=== PATIENT | female | born 1945 | race Caucasian/White ===

== ENCOUNTER → 2016-03-25 | Outpatient (CLI) | payer OTHER, MEDICARE ==
--- NOTE | 2016-03-25 09:53 | DX ---
Cervical Spine, Two Views History: Cervical fusion. M43.22. Findings: Anterior cervical fusion plate and screws with interbody disk fusion plugs noted at C4, C5, and C6. Hardware appears intact. C6-C7 moderate degenerative disk disease with ventral osteophytes a nd small dorsal osteophytes. C7-T1 grade 1 anterolisthesis with mild degenerative disk disease and 3 mm anterolisthesis. Suggestion of multilevel bilateral facet arthropathy from C3-C4 through C7-T1, wo rse on the right. Impression: 1. C4-C6 anterior cervical diskectomy and fusion hardware appears intact with satisfactory alignment. 2. C6-C7 moderate degenerative disk disease. 3. C7-T1 degenerative grade 1 anterolisthesis with mild degenerative disk disease and moderate bilate ral facet arthropathy.
== END ==
LOC: FIMAGING 08:36
PROVIDERS: ATTEND Physician Assistant Surgical
DX: Z98.1 Arthrodesis status (principal); M50.30 Other cervical disc degeneration, unspecified cervical region; M43.13 Spondylolisthesis, cervicothoracic region

== ENCOUNTER → 2016-05-21 | Outpatient (CLI) | payer OTHER, MEDICARE | LOC: BMCIMAGING 12:57 | PROVIDERS: ATTEND Internal Medicine | DX: M17.11 Unilateral primary osteoarthritis, right knee (principal); M25.461 Effusion, right knee ==

== ENCOUNTER → 2016-06-25 | Outpatient (CLI) | payer OTHER, MEDICARE | LOC: FIMAGING 10:58 | PROVIDERS: ATTEND Physician Assistant Surgical | DX: Z47.89 Encounter for other orthopedic aftercare (principal); Z98.1 Arthrodesis status ==

== ENCOUNTER → 2016-11-25 | Outpatient (CLI) | payer OTHER, MEDICARE | LOC: FIMAGING 11:30 | PROVIDERS: ATTEND Physician Assistant Surgical | DX: Z09 Encounter for follow-up examination after completed treatment for conditions other than malignant neoplasm (principal); Z98.1 Arthrodesis status; M43.13 Spondylolisthesis, cervicothoracic region ==

== ENCOUNTER → 2016-12-02 | Outpatient (CLI) | payer OTHER, MEDICARE | LOC: BMCIMAGING 15:17 | PROVIDERS: ATTEND Nurse Practitioner Adult Health | DX: R00.1 Bradycardia, unspecified (principal); R06.02 Shortness of breath ==

== ENCOUNTER 2017-01-18 10:30 | Inpatient (IN) | payer OTHER, MEDICARE ==
--- NOTE | 2017-05-09 08:55 | GHP ---
[f rep st] PREOP HISTORY AND PHYSICAL DATE OF ADMISSION: 05/10/2017 HISTORY: The patient is a 71-year-old female who presents with severe left shoulder glenohumeral ost eoarthritis. She has had increasing pain, limitation of motion, this impacts functional use of her a rm and activities of daily living. Her x-rays show [id number] osteoarthritis of the right shoulder , an MRI shows some partial rotator cuff involvement, but she is a good candidate for a total shoulde r arthroplasty and wishes to proceed. PAST MEDICAL HISTORY: Remarkable for hypertension, she has had episodes of bradycardia that have bee n worked up by Cardiology and she is cleared for surgery. MEDICATIONS: Metoprolol 25 mg p.o. daily, atorvastatin 20 mg p.o. daily, Dorzolamide, hydrochlorothi azide 25 mg p.o. daily, paroxetine 10 mg p.o. daily, and aspirin 81 mg p.o. daily. PAST SURGICAL HISTORY: Include a left total knee arthroplasty. She has had a C-spine procedure. Jaspreet hernandez has had bilateral thumb CMC operations, and breast biopsies x2. 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 SOCIAL HISTORY: She is a nonsmoker. ALLERGIES: She has an allergy to tape adhesive, as well as sulfa. REVIEW OF SYSTEMS: Review of systems is positive from the standpoint of hypertension, as well as his tory of bradycardia. PHYSICAL EXAM: GENERAL: The patient is a well-developed, well-nourished female, no apparent distres s. HEAD AND NECK: Normocephalic, atraumatic. CHEST: Clear. CARDIOVASCULAR: Regular rate and rhy thm. ABDOMEN: Soft. NEUROLOGIC: She is alert and oriented x3. EXTREMITIES: Examination of the right shoulder shows act ramiro motion to about 120 degrees, abduction to 90 degrees, external rotation to about 50, she can reac h behind her back to the belt line. Rotator cuff strength is good. NEUROVASCULAR: Intact. SKIN: Intact. X-ray show significant glenohumeral arthritis, decreased joint space, degenerative lipping, and defor mity of the humeral head and flattening, all consistent with glenohumeral osteoarthritis. IMPRESSION: Right shoulder osteoarthritis. PLAN: Right total shoulder arthroplasty. Benefits and risks of surgery have been reviewed with the patient, and she understands that the risks include infection, damage to blood vessel or nerve, failu re or loosening of components, need for revision, or possible limitation of motion, and we have discussed the rigorous nature of the rehabilitation. She has signed a consent form, wishes to proceed. /[id number]/MODL
[2017-05-10] MEDS ORDERED: NS IV ONE (06:00)
[2017-05-10] MEDS ORDERED: TRANEXAMIC ACID IV ONE (06:00)
[2017-05-10] MEDS ORDERED: ROPIVACAINE 0.2% 80 MG, EPINEPHrine 0.2 MG, KETOROLAC TROMETHAMINE 30 MG in SYRINGE 0 ML IU ONE (06:00)
[2017-05-10] MEDS ORDERED: ceFAZolin 2 GM/SWFI 2 GM/20 ML SYR IVP ONE (08:46)
[2017-05-10] MEDS ORDERED: ACETAMINOPHEN 500 MG TAB PO ONE (08:46)
[2017-05-10] MEDS ORDERED: LR 1,000 ML IV SCH ×2 (08:46→13:00)
[2017-05-10] MEDS ORDERED: LR 1,000 ML IV ONE (08:48)
[2017-05-10] MEDS ORDERED: LIDOCAINE 1% 2 ML INJ ONE (08:50)
[2017-05-10] MEDS ORDERED: POLYMYXIN B SULFATE 500,000 UNIT/10 ML SYR IRR ONE (08:59)
[2017-05-10] MEDS ORDERED: BACITRACIN 50,000 UNITS/10 ML SYR IRR ONE (08:59)
[2017-05-10] MEDS ORDERED: BUPIVACAINE/EPI 0.5% 30 ML SDV ONE (08:59)
[2017-05-10] MEDS ORDERED: MIDAZOLAM 2 MG/2 ML VIAL ONE (09:07)
[2017-05-10] MEDS ORDERED: fentaNYL 100 MCG/2 ML INJ ONE (09:07)
[2017-05-10] MEDS ORDERED: ROPIVACAINE HCL 150 MG/30 ML INJ ONE (09:07)
[2017-05-10] MEDS ORDERED: LIDOCAINE 1% 2 ML INJ ID PRN (09:11)
--- NOTE | 2017-05-10 09:44 | PDANEPAE ---
ANE History of Present Illness right shoulder pain ANE Past Medical History - Cardiovascular History Hx Hypertension: Yes Hx Arrhythmias: Yes Hx Chest Pain: No Hx Coronary Artery / Peripheral Vascular Disease: Yes Hx CHF / Valvular Disease: No Cardiovascular History Comment: PVCs. HYPERLIPIDEMIA - Pulmonary History Hx COPD: No Hx Asthma/Reactive Airway Disease: No Hx Recent Upper Respiratory Infection: No Hx Oxygen in Use at Home: No Hx Sleep Apnea: No Sleep Apnea Screening Result - Last Documented: Positive Pulmonary History Comment: SOB - Neurologic History Hx Cerebrovascular Accident: No Hx Seizures: No Hx Dementia: No - Endocrine History Hx Diabetes: No - Renal History Hx Renal Disorders: No Renal History Comment: OCCAS INCONTINENCE - Liver History Hx Hepatic Disorders: No - Neurological & Psychiatric Hx Hx Neurological and Psychiatric Disorders: Yes Neurological / Psychiatric History Comment: ANXIETY - Cancer History Hx Cancer: No - Congenital Disorder History Hx Congenital Disorders: No - GI History Hx Gastrointestinal Disorders: No - Other Health History Other Health History: NEG - Chronic Pain History Chronic Pain: Yes (BACK AND NECK PAIN) - Surgical History Prior Surgeries: CERVICAL DISCECTOMY/FUSION 2016. BREAST BX R X2. ASPEN THUMBS SURG. L TKA. CATARACT SURGERY W/STENTS FOR GLAUCOMA ANE Review of Systems Review of Systems: - Exercise capacity METS (RN): 3 METS ANE Patient History - Allergies Allergies/Adverse Reactions: Sulfa (Sulfonamide Antibiotics) Allergy (Severe, Verified 03/16/17 07:54) Rash adhesive tape Allergy (Mild, Verified 12/19/15 11:47) Rash - Home Medications Home Medications: RX: PARoxetine HCL [Paxil 10mg (*)] 10 mg PO DAILY 12/19/15 [Last Taken 05/10/17 ] Metoprolol Succinate Xr [Toprol Xl 25 mg (*)] 25 mg PO HS 03/09/17 [Last Taken 05/09/17] Aspirin [Aspirin 81mg (*)] 81 mg PO DAILY 03/16/17 [Last Taken 05/03/17] Dorzolamide 2% [Trusopt 2% (*)] 1 drops EACHEYE BID 03/16/17 [Last Taken ] Hydrochlorothiazide [HCTZ (*)] 25 mg PO DAILY 03/16/17 [Last Taken 05/09/17] Atorvastatin Calcium [Lipitor 20 mg (*)] 20 mg PO DAILY 05/06/17 [Last Taken 02/ 18/18] - NPO status NPO Since - Liquids (Date): 05/10/17 NPO Since - Liquids (Time): 06:30 NPO Since - Solids (Date): 05/09/17 NPO Since - Solids (Time): 20:00 - Smoking Hx Smoking Status: Former smoker ANE Labs/Vital Signs - Vital Signs Blood Pressure: 125/76 Heart Rate: 34 Respiratory Rate: 116 O2 Sat (%): 93 Height: 165.1 cm Weight: 69.853 kg ANE Physical Exam - Airway Neck exam: decreased ROM Mallampati Score: Class 3 Mouth exam: normal dental/mouth exam - Pulmonary Pulmonary: no respiratory distress - Cardiovascular Cardiovascular: regular rate and rhythym - ASA Status ASA Status: III ANE Anesthesia Plan Anesthesia Plan: general endotracheal anesthesia Regional Anesthesia: interscalene BP NB
--- NOTE | 2017-05-10 09:48 | PDHPUP ---
History & Physical Update H&P update statement: This history and physical update is based on an assessment of the patient which was completed after admission or registration (within 24 hours), but prior to the surgery/procedure.
[2017-05-10] MEDS ORDERED: PROPOFOL 200 MG/20 ML VIAL ONE (09:49)
[2017-05-10] MEDS ORDERED: NALOXONE HCL 0.4 MG/ML INJ IVP PRN (11:51)
[2017-05-10] MEDS ORDERED: PROMETHAZINE HCL 25 MG/ML INJ IVP PRN (11:51)
[2017-05-10] MEDS ORDERED: ONDANSETRON 4 MG/2 ML VIAL IVP PRN ×2 (11:51→12:52)
[2017-05-10] MEDS ORDERED: HYDROmorphONE/DILAUDID 1 MG/ML INJ IVP PRN (11:51)
[2017-05-10] MEDS ORDERED: fentaNYL 100 MCG/2 ML INJ IVP PRN (11:51)
[2017-05-10] MEDS ORDERED: ONDANSETRON 4 MG/2 ML VIAL ONE (12:09)
[2017-05-10] MEDS ORDERED: ROCURONIUM 50 MG/5 ML VIAL ONE (12:10)
[2017-05-10] MEDS ORDERED: DEXAMETHASONE 4 MG/ML VIAL ONE (12:10)
[2017-05-10] MEDS ORDERED: ACETAMINOPHEN 325 MG TAB PO PRN (12:52)
[2017-05-10] MEDS ORDERED: TEMAZEPAM 15 MG CAP PO PRN (12:52)
[2017-05-10] MEDS ORDERED: OXYCODONE/APAP 5/325 TAB PO PRN (12:52)
[2017-05-10] MEDS ORDERED: HYDROCODONE/APAP 5/325 TAB PO PRN (12:52)
--- NOTE | 2017-05-10 12:52 | POSTANESTH ---
Post Anesthetic Evaluation Cardiovascular Status: Normal, Stable Respiratory Status: Normal, Stable Level of Consciousness/Mental Status: Can Participate in Eval Pain Control: Adequate, Prn Tx Ordered Nausea/Vomiting Control: Adequate, Prn Tx Ordered Complications Possibly Related to Anesthesia: None Noted
[2017-05-10 13:36] VITALS: RESP 16
--- NOTE | 2017-05-10 13:46 | GOP ---
[f rep st] OPERATIVE REPORT DATE OF OPERATION: 05/10/2017 SURGEON: Anastacio Dover MD DISCOTHEQUE DANCER: Darren Harris [facility] ANESTHESIOLOGIST: Dr. Sung. PREOPERATIVE DIAGNOSIS: Right shoulder osteoarthritis. POSTOPERATIVE DIAGNOSIS: Right shoulder osteoarthritis. PROCEDURE PERFORMED: A right total shoulder arthroplasty. FINDINGS: SPECIMENS: The excised humeral head. ESTIMATED BLOOD LOSS: About 30 cc. INDICATIONS: The patient is a 71-year-old female who presents with a history, exam, and x-rays consi stent with severe [id number] right shoulder osteoarthritis. DESCRIPTION OF PROCEDURE: The patient was taken to the operating room, and placed supine on the oper ating table and a scalene block was administered by Dr. Sung under ultrasound guidance. She was th en placed under general anesthetic with endotracheal intubation. She received 2 g of IV Ancef as wel l as a dose of tranexamic acid. She was placed in a semi beach-chair position using a Lord head waiter and I moved her body toward the right side of the table so that I could extend the right shoul willy. The right shoulder and arm were prepped and draped free with chlorhexidine. I made a standard anterior exposure of the shoulder starting my incision over the coracoid and extending in the deltope ctoral interval to the anterior upper arm. Dissection was carried down through subcutaneous tissue a nd I mobilized this layer to identify the pectoralis major muscle in the deltoid. I found the deltop ectoral interval and blunt dissection was carried down through the tissues to the conjoined tendon, a retractor was placed beneath the conjoined tendon, another retractor beneath the deltoid. I tenodes ed the biceps just proximal to the pectoralis tendinous insertion, I made a short incision, I sutured the tendon to the surrounding tissues with 2 figure-eight sutures of #2 FiberWire, then released the tendon. Later, I did release the tendon in the joint to remove the proximal biceps tendon which did have tendinosis. I opened the shoulder anteriorly with a vertical incision through the subscapulari s tendon and capsule just about a centimeter to a centimeter and a half medial to the lesser tuberosi ty. I carried this incision into the rotator interval and then with external rotation into the infer ior capsule. This allowed me to bring the head into the wound and I used a neck cutting guide to glenn mei humeral neck cut in about 20-25 degrees of retroversion. I removed osteophytes. By palpating th e axillary nerve and holding it inferiorly and out of the way, I released the inferior capsule. This allowed me to bring the humerus more up into the wound. I gained access to the canal with a sharp a wl and I reamed up to 10 mm. The broaches were used up to 10 mm and this was a good fit. It had the appropriate amount of retroversion as measured by alignment pins. I then exposed the glenoid, remov ed torn labral tissue. I did mobilize the subscapularis muscle and tendon to make this a free moving unit by using a Langenbeck elevator beneath the tendon and the humeral neck and I mobilized the subs tance of the subscapularis, so that it had good excursion. This was tagged. I placed posterior and anterior glenoid neck retractors. I sized the glenoid to a size 40 component. I drilled appropriate peg holes. I used glue in 3 of the 4 peg holes leaving the bone ingrowth peg open for bone ingrowth and I used a 40 anchor peg glenoid Premieron X-linked Polyethylene component. This was a good fit, it fit nicely on the glenoid and was stable. I then redirected my attention to the humerus. I drill ed 4 holes in the anterior humeral neck for repair of the subscapularis and I threaded #2 FiberWire t hrough them. I placed the standard [employer] Porocoat press-fit standard stem, 10 mm diameter in appropriate retroversion. I did trial reductions. I found that a 44 head, 21 mm in thickness, p rovided excellent coverage of the humeral neck and appropriate stability of the joint with about 50% translation when the reduced shoulder was moved anteriorly and posteriorly. It allowed excellent rot ation. I could easily place my subscapularis on the lesser tuberosity for the tissue repair. The 44 x 21 [employer]age humeral head, round in shape, was placed over the Pickett taper fit, hammered in to place, and the joint reduced. I used copious antibiotic irrigation. I mattressed the preplaced F iberWire sutures in the anterior humeral neck through the subscapularis tendon, tied these with multi ple knots, and also added a couple figure-eight sutures of #2 FiberWire in the interval. This provid ed external rotation to about 25-30 degrees. Good internal rotation. The shoulder was mobile and st able. Antibiotic irrigation was used again. I closed this wound in layers using 2-0 Monocryl in the muscle layer, I infiltrated a joint cocktail. I used 3-0 Monocryl in the subcutaneous layer and a 3 -0 Quill suture in the subcuticular layer, and I used glue, Telfa, and a Tegaderm to finish the dress ing. The patient was placed in a sling. There were no complications. DRAINS: None. COUNTS: All were correct. The patient was taken in stable condition to recovery. She received a second dose of tranexamic acid before wound closure. My surgical garment assembler was a medical necessity for this total shoulder replacement. SUMMARY OF COMPONENTS: This is a [employer] shoulder. The glenoid is an Kotlik peg glenoid Premie arnulfo X-linked Polyethylene. The stem is a Porocoat standard stem size 10 mm. The head is a 44 x 21 m m round [employer]age humeral head. /[id number]/MODL
[2017-05-10] MEDS ORDERED: ceFAZolin 2 GM/DEXTROSE 100 ML IV SCH (14:00)
--- NOTE | 2017-05-10 16:10 | ASMTCMCOM ---
CM Note CM Note Notes: Patient admitted for shoulder arthroplasty, Therapies pending. Needs to be determined. CM to follow. Date Signed: 05/10/2017 04:09 PM Electronically Signed By:Chela Kelly RN
[2017-05-10] MEDS: KETOROLAC 15 MG/1 ML SDV IVP SCH (18:16)
[2017-05-10] MEDS: ceFAZolin 2 GM/SWFI 2 GM/20 ML SYR IVP SCH (18:17)
[2017-05-10] MEDS: DOCUSATE SODIUM 100 MG CAP PO SCH (20:47)
[2017-05-10] MEDS ORDERED: METOPROLOL SUCCINATE XR 25 MG TAB PO SCH (21:00)
[2017-05-10] MEDS: DORZOLAMIDE 2% OPTH DROPS EACHEYE SCH (21:19)
[2017-05-11] MEDS: KETOROLAC 15 MG/1 ML SDV IVP SCH ×3 (00:42→12:29)
[2017-05-11] MEDS: ceFAZolin 2 GM/SWFI 2 GM/20 ML SYR IVP SCH (01:03)
--- NOTE | 2017-05-11 07:54 | SOAPPROG ---
SOAP Progress Note Assessment/Plan: Assessment: 05/11/17 POD#1 R TSA, pain controlled Plan: 05/11/17 07:52 PT/OT and home today, has PT set up, oxy, celebrex Objective: Vital Signs Temp Pulse Resp BP Pulse Ox 36.5 C 59 L 16 107/54 L 98 05/11/17 03:27 05/11/17 03:27 05/11/17 03:27 05/11/17 03:27 05/11/17 03:27 05/10/17 05/11/17 05/12/17 05:59 05:59 05:59 Intake Total 2836 Output Total 700 Balance 2136 ICD10 Worksheet Patient Problems: Problems Problem Status Onset Cervical vertebral fusion Acute
[2017-05-11 08:15] VITALS: BP 117/57; TEMP 98.2
[2017-05-11] MEDS: DOCUSATE SODIUM 100 MG CAP PO SCH (08:23)
[2017-05-11] MEDS: DORZOLAMIDE 2% OPTH DROPS EACHEYE SCH (08:23)
[2017-05-11] MEDS ORDERED: ATORVASTATIN CALCIUM 20 MG TAB PO SCH (09:00)
[2017-05-11] MEDS ORDERED: HYDROCHLOROTHIAZIDE 25 MG TAB PO SCH (09:00)
[2017-05-11] MEDS ORDERED: PARoxetine HCL 10 MG TAB PO SCH (09:00)
[2017-05-11] MEDS ORDERED: ASPIRIN 81 MG CHEWABLE TAB PO SCH (09:00)
[2017-05-11 12:48] VITALS: PULSE 40; O2SAT 92
--- NOTE | 2017-05-11 14:03 | ASMTCMCOM ---
CM Note CM Note Notes: Kinsey at Dr. Dover's office reports they have set up [facility] for pt and have already sent them orders. Date Signed: 05/11/2017 02:02 PM Electronically Signed By:AZALIA Warner
--- NOTE | 2017-05-11 14:04 | ASDISCHSUM ---
Discharge Information Plan Status:Home with Home Health Medically Cleared to Leave: Discharge Date:05/11/2017 01:05 PM CM D/C Disposition:Home Health Service ADT D/C Disposition:[id number] Projected Discharge Date:05/11/2017 11:00 AM Transportation at D/C: Discharge Delay Reason: Follow-Up Date:05/11/2017 11:00 AM Discharge Slot: Final Diagnosis: Placement Information Referral Type:*Home Health Care Services Referral ID:[id number] Provider Name:[facility] Address 1:[address] Address 2: City:[place] Selection Factors: State:[place] Patient Contact Information Contact Name:BENOIT Relationship: Address:[address] City:[facility] [facility] Phone: [facility]/Zip Code:[place] [address] Email: Financial Information Financial Class:Medicare Primary Plan Desc:MEDICARE INPATIENT Primary Plan Number:[id number] Secondary Plan Desc:AARP/MDR SUPPLEMENT Secondary Plan Number:[id number] Assessment Information [facility] CM Progress Note CM Note CM Note Notes: Patient admitted for shoulder arthroplasty, Therapies pending. Needs to be determined. CM to follow. Date Signed: 05/10/2017 04:09 PM Electronically Signed By:Chela Kelly RN [facility] CM Progress Note CM Note CM Note Notes: Kinsey at Dr. Dover's office reports they have set up [facility] for pt and have already sent them orders. Date Signed: 05/11/2017 02:02 PM Electronically Signed By:AZALIA Warner Intervention Information
== END 2017-05-11 13:05 | disposition home health service (06) | DRG 483 ==
LOC: F3N 05-10 08:07
PROVIDERS: ADMIT Orthopaedic Surgery; ATTEND Orthopaedic Surgery
PROC: 0RRK0JZ Replacement of Left Shoulder Joint with Synthetic Substitute, Open Approach (ICD-10-PCS; principal; 2017-05-10 10:45)
DX: M19.012 Primary osteoarthritis, left shoulder (principal); I10 Essential (primary) hypertension; Z96.652 Presence of left artificial knee joint
CPT/HCPCS: 97161-GP; 97165-GO; 97535-GO; C1713; G8978-GP-CI; G8979-GP-CI; G8980-GP-CI; G8987-GO-CI; G8988-GO-CI; G8989-GO-CI; J0171; J0690; J1100; J1885; J2250; J2405; J2704; J2795; J3010

== ENCOUNTER 2017-03-16 06:34 | Day surgery (SDC) | payer OTHER, MEDICARE ==
[2017-03-16] MEDS ORDERED: FAMOTIDINE 20 MG TAB PO ONE (06:35)
[2017-03-16] MEDS ORDERED: diphenhydrAMINE 25 MG CAP PO ONE ×2 (06:35→07:04)
[2017-03-16] MEDS ORDERED: ASPIRIN EC 325 MG TAB PO ONE ×2 (06:35→07:04)
[2017-03-16] MEDS ORDERED: NS 1,000 ML IV ONE (06:35)
[2017-03-16] MEDS ORDERED: DIAZEPAM 5 MG TAB PO ONE (06:35)
--- NOTE | 2017-03-16 07:00 | CPEKG ---
Heart Rate: 82 RR Interval: 732 P-R Interval: 200 QRSD Interval: 94 QT Interval: 392 QTC Interval: 458 P Spencer: 72 QRS Spencer: -17 T Wave Spencer: -8 EKG Severity - ABNORMAL ECG - EKG Impression: SINUS RHYTHM EKG Impression: VENTRICULAR BIGEMINY EKG Impression: PROBABLE LEFT ATRIAL ABNORMALITY EKG Impression: BORDERLINE LEFT AXIS DEVIATION Electronically Signed By: Jose Zaragoza 16-Mar-2017 07:50:55
[2017-03-16] MEDS ORDERED: FAMOTIDINE 20 MG TAB ONE (07:04)
[2017-03-16] MEDS ORDERED: DIAZEPAM 5 MG TAB ONE (07:04)
[2017-03-16 07:15] LABS: % IMMATURE GRANULYOCYTES 0.1 % (0.0-1.1); ABSOLUTE IMMATURE GRANULOCYTES 0.01 10^3/uL (0.00-0.10); ADD DIFF? NO; ADD MORPH? NO; ADD SCAN? NO; ATYPICAL LYMPHOCYTE FLAG 10 (0-99); FRAGMENT RBC FLAG 0 (0-99); HEMOGLOBIN 14.7 g/dL (12.6-16.3); LEFT SHIFT FLG 0 (0-99); LIPEMIA HEMOLYSIS FLAG 90 (0-99); MEAN CELL HEMOGLOBIN 31.2 pg (27.9-34.1); MEAN CELL HEMOGLOBIN CONCENTR. 34.2 g/dL (32.4-36.7); MEAN CELL VOLUME 91.3 fL (81.5-99.8); MEAN PLATELET VOLUME 12.9 fL (8.7-11.7); PLATELET CLUMPS FLAG 10 (0-99); PLATELET COUNT 191 10^3/uL (150-400); RED BLOOD CELL COUNT 4.71 10^6/uL (4.18-5.33)
[2017-03-16 07:24] LABS: INR 0.98 (0.83-1.16); PROTIME(PATIENT) 13.2 SEC (12.0-15.0)
[2017-03-16 07:25] LABS: ANION GAP 17 mEq/L (8-16); CALCIUM 9.9 mg/dL (8.5-10.4); CARBON DIOXIDE 24 mEq/l (22-31); CHLORIDE 103 mEq/L (97-110); CHOLESTEROL 198 mg/dL (140-220); CHOLESTEROL/HDL RATIO 3.54 RATIO (1.00-4.44); CREATININE 0.9 mg/dL (0.6-1.0); GLOMERULAR FILTRATION RATE > 60; GLUCOSE 119 mg/dL (70-100); HIGH DENSITY LIPOPROTEIN 56 mg/dL (40-85); LOW DENSITY LIPOPROTEIN 112 mg/dL (80-100); MAGNESIUM 1.8 mg/dL (1.6-2.3); NON-HIGH DENSITY LIPOPROTEIN 142 mg/dL (90-129); POTASSIUM 4.4 mEq/L (3.5-5.2); SODIUM 144 mEq/L (134-144); TRIGLYCERIDE 150 mg/dL (35-135); VERY LOW DENSITY LIPOPROTEINS 30 mg/dL (8-25)
[2017-03-16] MEDS ORDERED: IOPAMIDOL (ISOVUE-370) 150 ML BTL IV ONE (07:45)
[2017-03-16] MEDS ORDERED: LIDOCAINE 1% 300 MG/30 ML SDV ONE (07:45)
[2017-03-16] MEDS ORDERED: MIDAZOLAM 2 MG/2 ML VIAL ONE (07:45)
[2017-03-16] MEDS ORDERED: VERAPAMIL 5 MG/2 ML VIAL ONE (07:45)
[2017-03-16] MEDS ORDERED: HEPARIN 10,000 UNIT/10 ML MDV ONE (07:45)
[2017-03-16] MEDS ORDERED: fentaNYL 100 MCG/2 ML INJ ONE (07:45)
--- NOTE | 2017-03-16 08:30 | PDHPUP ---
History & Physical Update H&P update statement: This history and physical update is based on an assessment of the patient which was completed after admission or registration (within 24 hours), but prior to the surgery/procedure. H&P update: H&P reviewed & patient examined, no change in patient's condition since H&P completed
--- NOTE | 2017-03-16 08:31 | PDPROPOC ---
Sedation Plan of Care Sedation Plan of Care: vital signs stable, mental status noted, patient educated of risks, benefits, alternatives, patient can tolerate sedation ASA Classification: ASA 2 Planned drugs: fentanyl, midazolam Mallampati Score: Class 1 Mallampati Reference Image: Patient passed 3-3-2 rule?: Yes
[2017-03-16] MEDS ORDERED: ATROPINE SULFATE 1 MG/10 ML SYR IVP PRN (09:10)
--- NOTE | 2017-03-16 09:13 | PDDXCAT ---
Diagnostic Cath Note - . Date: 03/16/17 Herbicide Sprayer: Nathanael Indication: CCC Class III and IV angina on medical treatment - Procedure Access: right wrist Procedure: left heart catheterization, coronary angiography - Materials Left Heart Cath size: 4F Left Heart Cath materials: JL3.5, JR4.0, pigtail - Findings-Left Heart Catheterization LM: Normal LAD: Normal LCX: Co dominant: Normal RCA: Co dominant: Normal EDP: 15 LVEF: 65 Wall motion: Normal Complications: None Estimated blood loss: <50ml Closure method: TR Band Assessment: Normal coronary arteries. Normal LV systolic function. No contraindications to surgery identified by this exam. Plan: Primary prevention Patient Problems: Problems Problem Status Onset Cervical vertebral fusion Acute
== END 2017-03-16 13:00 | disposition home or self-care (01) ==
LOC: FCATH 06:34
PROVIDERS: ATTEND Internal Medicine Interventional Cardiology
DX: R07.9 Chest pain, unspecified (principal); I49.3 Ventricular premature depolarization; R94.39 Abnormal result of other cardiovascular function study; R06.83 Snoring; R06.02 Shortness of breath; F32.9 Major depressive disorder, single episode, unspecified; I10 Essential (primary) hypertension; Z87.891 Personal history of nicotine dependence; Z88.2 Allergy status to sulfonamides; Z98.1 Arthrodesis status
CPT/HCPCS: 93005; 93458; C1769; J1644; J2250; J3010; Q9967

== ENCOUNTER → 2017-04-14 | Outpatient (CLI) | payer OTHER, MEDICARE | LOC: FIMAGING 08:39 | PROVIDERS: ATTEND Internal Medicine | DX: Z12.31 Encounter for screening mammogram for malignant neoplasm of breast (principal); Z80.3 Family history of malignant neoplasm of breast ==

== ENCOUNTER → 2017-04-23 | Outpatient (CLI) | payer OTHER, MEDICARE | LOC: FIMAGING 14:51 | PROVIDERS: ATTEND Internal Medicine | DX: R92.8 Other abnormal and inconclusive findings on diagnostic imaging of breast (principal) ==

== ENCOUNTER → 2017-08-26 | Outpatient (CLI) | payer OTHER, MEDICARE | LOC: BHFA 09:00 | PROVIDERS: ATTEND Internal Medicine Cardiovascular Disease | DX: I49.3 Ventricular premature depolarization (principal); R07.9 Chest pain, unspecified ==

== ENCOUNTER → 2017-11-06 | Outpatient (CLI) | payer OTHER, MEDICARE | LOC: FCPNEURO 21:00 | PROVIDERS: ATTEND Student in an Organized Health Care Education/Training Program | DX: G47.33 Obstructive sleep apnea (adult) (pediatric) (principal) ==

== ENCOUNTER 2017-12-06 05:31 | Inpatient (IN) | payer OTHER, MEDICARE ==
--- NOTE | 2017-12-05 18:58 | GHP ---
DATE OF ADMISSION: 12/06/2017 Yesenia is a 72-year-old female who presents with right knee pain that has been increasing for years. Her pain is predominantly medial. She has had a previous left total knee arthroplasty. Her right kn ee causes her pain, swelling, limited motion, impacts her gait and quality of life. She has tried co nservative measures, including viscosupplementation series. Her x-rays show significant right knee t ricompartment osteoarthritis. A right total knee arthroplasty is planned. PAST MEDICAL HISTORY: Remarkable for sleep apnea as well as hypertension. She has had a cardiac cat h that was okay. She is hypothyroid. SURGERIES: Include a right total shoulder arthroplasty, left total knee arthroplasty, C-spine fusion at C4-5, bilateral thumb CMC joint surgery. She has had breast biopsies x2 that were not cancer. MEDICATIONS: She does have glaucoma, for which she uses dorzolamide. Atorvastatin 20 mg p.o. daily, aspirin 81 mg p.o. daily, metoprolol 25 mg p.o. daily, hydrochlorothiazide 12.5 mg p.o. daily, parox etine 10 mg p.o. daily, lisinopril 10 mg p.o. daily, and levothyroxine. SOCIAL HISTORY: She does have a history as a former smoker. ALLERGIES: She has an allergy to sulfa and adhesive tape. REVIEW OF SYSTEMS: Positive from a cardiopulmonary standpoint for her hypertension and sleep apnea. From the endocrine standpoint, for her hypothyroid. PHYSICAL EXAM: GENERAL: Yesenia is a well-developed, well-nourished female, in no apparent distress. HEAD AND NECK: Normocephalic, atraumatic. CHEST: Clear. CARDIOVASCULAR: Regular rate and rhythm . ABDOMEN: Soft. NEUROLOGIC: She is alert and oriented x3. EXTREMITIES: Examination of the righ t knee shows some varus malalignment. She is tender, especially along the medial joint line. She wright s an effusion. Ligamentously, the knee appears stable with some pseudolaxity medially. SKIN/NEUROVA SCULAR: Her skin and neurovascular exam appear intact. Range of motion looks quite good. A slight flexion contracture. She is bending to about 130 degrees. DIAGNOSTIC STUDIES: X-rays show right knee tricompartment osteoarthritis with degenerative lipping, narrowing of the joint space, subchondral sclerosis, and especially narrowing medially. IMPRESSION: Right knee tricompartment osteoarthritis. PLAN: Right total knee arthroplasty. The benefits and risks of surgery have been reviewed with Judy olvera, and she understands the risks include infection, damage to blood vessel or nerves, failure or loos ening of components, and need for revision. She understands the rigorous nature of the rehabilitatio n and wishes to proceed. /[id number]/MODL
[2017-12-06] MEDS ORDERED: GABAPENTIN 300 MG CAP PO ONE (06:02)
[2017-12-06] MEDS ORDERED: ACETAMINOPHEN 325 MG TAB PO ONE (06:02)
[2017-12-06] MEDS ORDERED: ROPIVACAINE 0.2% 80 MG, EPINEPHrine 0.2 MG, KETOROLAC TROMETHAMINE 30 MG in SYRINGE 0 ML IU ONE (06:02)
[2017-12-06] MEDS ORDERED: ONDANSETRON 4 MG/2 ML VIAL IVP ONE (06:02)
[2017-12-06] MEDS ORDERED: ceFAZolin 2 GM/DEXTROSE 100 ML IV ONE (06:02)
[2017-12-06] MEDS ORDERED: TRANEXAMIC ACID 1,000 MG in NS 100 ML IV ONE (06:02)
[2017-12-06] MEDS ORDERED: POVIDONE-IODINE 20 ML in SODIUM CL IRRIG SOLUTION 500 ML IRR ONE (06:02)
[2017-12-06] MEDS ORDERED: FAMOTIDINE 20 MG TAB PO ONE (06:02)
[2017-12-06] MEDS ORDERED: LR 1,000 ML IV ONE (06:23)
[2017-12-06] MEDS ORDERED: LIDOCAINE 1% 2 ML INJ ID PRN (06:23)
[2017-12-06] MEDS ORDERED: ceFAZolin 1 GM/5 ML SYR ONE (06:25)
--- NOTE | 2017-12-06 07:06 | PDHPUP ---
History & Physical Update H&P update statement: This history and physical update is based on an assessment of the patient which was completed after admission or registration (within 24 hours), but prior to the surgery/procedure. H&P update: H&P reviewed & patient examined (no change) H&P changes: no change
[2017-12-06] MEDS ORDERED: MIDAZOLAM 2 MG/2 ML VIAL ONE (07:13)
--- NOTE | 2017-12-06 07:15 | PDANEPAE ---
ANE Past Medical History - Cardiovascular History Hx Hypertension: Yes Hx Arrhythmias: Yes Hx Chest Pain: No Hx Coronary Artery / Peripheral Vascular Disease: Yes Hx CHF / Valvular Disease: No Cardiovascular History Comment: PVCs. HYPERLIPIDEMIA - Pulmonary History Hx COPD: No Hx Asthma/Reactive Airway Disease: No Hx Recent Upper Respiratory Infection: No Hx Oxygen in Use at Home: No Hx Sleep Apnea: Yes Sleep Apnea Screening Result - Last Documented: Negative Pulmonary History Comment: SOB - Neurologic History Hx Cerebrovascular Accident: No Hx Seizures: No Hx Dementia: No - Endocrine History Hx Diabetes: No Endocrine History Comment: HYPOTHYROID - Renal History Hx Renal Disorders: No Renal History Comment: OCCAS INCONTINENCE - Liver History Hx Hepatic Disorders: No - Neurological & Psychiatric Hx Hx Neurological and Psychiatric Disorders: Yes Neurological / Psychiatric History Comment: ANXIETY - Cancer History Hx Cancer: No - Congenital Disorder History Hx Congenital Disorders: No - GI History Hx Gastrointestinal Disorders: No Gastrointestinal History Comment: DIARRHEA OCCAS - Other Health History Other Health History: NEG - Chronic Pain History Chronic Pain: Yes (BACK AND NECK PAIN) - Surgical History Prior Surgeries: CERVICAL DISCECTOMY/FUSION 2016. BREAST BX R X2. ASPEN THUMBS SURG. L TKA. CATARACT SURGERY W/STENTS FOR GLAUCOMA ANE Review of Systems Review of Systems: - Exercise capacity METS (RN): 3 METS ANE Patient History - Allergies Allergies/Adverse Reactions: Sulfa (Sulfonamide Antibiotics) Allergy (Severe, Verified 03/16/17 07:54) Rash adhesive tape Allergy (Mild, Verified 12/19/15 11:47) Rash - Home Medications Home Medications: PARoxetine HCL [Paxil 10mg (*)] 10 mg PO DAILY 12/19/15 [Last Taken 12/06/17 04: 30] Metoprolol Succinate Xr [Toprol Xl 25 mg (*)] 25 mg PO HS 03/09/17 [Last Taken 12/06/17 04:30] Aspirin [Aspirin 81mg (*)] 81 mg PO DAILY 03/16/17 [Last Taken 11/29/17] Dorzolamide 2% [Trusopt 2% (*)] 1 drops EACHEYE BID 03/16/17 [Last Taken 04:30] Atorvastatin Calcium [Lipitor 20 mg (*)] 20 mg PO DAILY 05/06/17 [Last Taken 04:30] Hydrochlorothiazide [HCTZ (*)] 12.5 mg PO DAILY 11/03/17 [Last Taken 12/05/17] Levothyroxine [Synthroid 25 mcg (*)] 25 mcg PO DAILY 11/03/17 [Last Taken 04:30] Lisinopril [Zestril 10 mg (*)] 10 mg PO DAILY 11/03/17 [Last Taken 12/05/17] Herbals/Supplements -Info Only 11/05/17 [Last Taken 2 Weeks Ago ~11/22/17] - NPO status NPO Since - Liquids (Date): 12/06/17 NPO Since - Liquids (Time): 04:30 NPO Since - Solids (Date): 12/05/17 NPO Since - Solids (Time): 21:00 - Smoking Hx Smoking Status: Former smoker ANE Labs/Vital Signs - Vital Signs Blood Pressure: 113/70 Heart Rate: 76 Respiratory Rate: 16 O2 Sat (%): 95 Height: 165.1 cm Weight: 68.946 kg ANE Physical Exam - Airway Neck exam: FROM Mallampati Score: Class 1 Mouth exam: normal dental/mouth exam - Pulmonary Pulmonary: no respiratory distress - Cardiovascular Cardiovascular: regular rate and rhythym - ASA Status ASA Status: II ANE Anesthesia Plan Anesthesia Plan: MAC, spinal
[2017-12-06] MEDS ORDERED: PROPOFOL 200 MG/20 ML VIAL ONE ×3 (07:41)
[2017-12-06] MEDS ORDERED: fentaNYL 100 MCG/2 ML INJ ONE (07:41)
[2017-12-06] MEDS ORDERED: morphINE PF 5 MG/10 ML INJ ONE (07:41)
[2017-12-06] MEDS ORDERED: LR 500 ML IV PRN (08:23)
[2017-12-06] MEDS ORDERED: NALOXONE HCL 0.4 MG/ML INJ IVP PRN (08:23)
[2017-12-06] MEDS ORDERED: HYDROCODONE/APAP 5/325 TAB PO PRN (08:23)
[2017-12-06] MEDS ORDERED: fentaNYL 100 MCG/2 ML INJ IVP PRN (08:23)
[2017-12-06] MEDS ORDERED: HYDROmorphONE/DILAUDID 1 MG/ML INJ IVP PRN (08:23)
[2017-12-06] MEDS ORDERED: ONDANSETRON 4 MG/2 ML VIAL IVP PRN ×2 (08:23→09:38)
[2017-12-06] MEDS ORDERED: LABETALOL HCL 5 MG/ML 20 ML MDV IVP PRN (08:23)
[2017-12-06] MEDS ORDERED: PROMETHAZINE HCL 25 MG/ML INJ IVP PRN ×2 (08:23→09:38)
[2017-12-06] MEDS ORDERED: ePHEDrine SULFATE 25 MG/5 ML SYR ONE (08:30)
[2017-12-06] MEDS ORDERED: MIDAZOLAM 2 MG/2 ML VIAL IVP ONE (08:31)
[2017-12-06] MEDS ORDERED: DEXAMETHASONE 4 MG/ML VIAL ONE (08:32)
[2017-12-06] MEDS ORDERED: ROPIVACAINE HCL 150 MG/30 ML INJ ONE (08:33)
[2017-12-06] MEDS ORDERED: BUPIVACAINE/DEXTROSE 7.5MG/ML 2 ML SPINAL AMP SP ONE (08:33)
[2017-12-06] MEDS ORDERED: ONDANSETRON 4 MG/2 ML VIAL ONE (08:41)
[2017-12-06] MEDS ORDERED: ONDANSETRON DISINTEGRATING 4 MG TAB PO PRN (09:38)
[2017-12-06] MEDS ORDERED: LACTULOSE 20 GM/30 ML UDCUP PO PRN (09:38)
[2017-12-06] MEDS ORDERED: BISACODYL 10 MG SUPP PR PRN (09:38)
[2017-12-06] MEDS ORDERED: MAGNESIUM HYDROXIDE 30 ML UDCUP PO PRN (09:38)
[2017-12-06] MEDS ORDERED: DIPHENOXYLATE/ATROPINE LOMOTIL 1 TAB PO PRN (09:38)
[2017-12-06] MEDS ORDERED: PROMETHAZINE HCL 25 MG SUPPR PR PRN (09:38)
[2017-12-06] MEDS ORDERED: diphenhydrAMINE 25 MG CAP PO PRN (09:38)
[2017-12-06] MEDS ORDERED: POLYETHYLENE GLYCOL 3350 17 GM PKT PO PRN (09:38)
[2017-12-06] MEDS ORDERED: METOCLOPRAMIDE 10 MG/2 ML VIAL IVP PRN (09:38)
[2017-12-06] MEDS ORDERED: TEMAZEPAM 15 MG CAP PO PRN (09:38)
--- NOTE | 2017-12-06 10:25 | GOP ---
DATE OF OPERATION: SURGEON: Anastacio Dover MD SOLAR SALES REPRESENTATIVE: TRAM León, A ANESTHESIOLOGIST: Love James MD PREOPERATIVE DIAGNOSIS: Right knee osteoarthritis. POSTOPERATIVE DIAGNOSIS: Right knee osteoarthritis. PROCEDURE PERFORMED: Right total knee arthroplasty. FINDINGS: SPECIMENS: Include excised bone. ESTIMATED BLOOD LOSS: Minimal. INDICATIONS: The patient is a 72-year-old female who presents with history, exam, and x-rays all con sistent with severe right knee osteoarthritis. DESCRIPTION OF PROCEDURE: Patient was taken to the operating room and in a seated position, Dr. Rodo schumacher provided spinal anesthetic. She received preoperative antibiotics, as well as tranexamic acid, an d was placed supine with a blanket beneath the right hip to neutralize the rotation. Tourniquet was placed high on the right thigh, and the right knee was prepped and draped carefully with chlorhexidin e. The limb was elevated, exsanguinated, and tourniquet inflated to 275 mmHg. I made a longitudinal incision in midline, used a medial parapatellar arthrotomy. I inverted the pat peng, sized its thickness at 22 mm and removed 9 mm of cartilage and bone and sized the patellar comp onent at a 35. I drilled holes for the pegs and the combination of the trial and her oneida patella reconstituted her patellar thickness and I trimmed osteophytes. Patella was inverted and knee was fl exed. I drilled a docking pilot hole in the distal femur. Using intramedullary jig and with no flexion cont racture, I pinned the cutting block at 5 degrees of valgus in a neutral cut. The cut was made and th e distal femur was sized. It was between a 5 and a 6. I downsized to 5, moved the component a littl e bit anteriorly to avoid notching and completed the anterior, posterior, and camphor cuts, as well a s the notch cuts for this bi-cruciate stabilized knee, and the #5 component was an excellent fit. I used retractors to expose the proximal tibia. I used the extramedullary guide with which I dialed in the depth of the cut, as well as posterior slope and rotation and made a transverse tibial cut perpe ndicular to the shaft of the tibia and this was sized to a 4, and I dialed in the rotation and finish ed the tibial prep. All the components were removed. All the surfaces jet lavaged with antibiotic solution. Cement was used for all the components, the tibial tray at size 4, the femur size 5, and the patellar 35. After the cement hardened, I did trial reductions and found that the 9 mm spacer allowed excellent extensi on, good ligamentous stability, and nice rollback in flexion, and the patella tracked well. The 9 mm articular tray was then snapped into place. I used a combination of a Betadine rinse and further antibiotic rinse. The tourniquet was let down a fter about an hour and 10 minutes. She received a second dose of tranexamic acid. The arthrotomy wa s closed with interrupted [id number] sutures of 0 Mersilene, subcutaneous tissue with 2-0 Monocr yl, and the skin with isaiah. The wound was dressed with Betadine-soaked Adaptic, 4 x 4, sterile We bril, and a long-leg GÓMEZ stocking was applied. There were no complications. DRAINS: No drain. COUNTS: All counts were correct and the patient was taken in stable condition to recovery. SUMMARY OF COMPONENTS: This is a Carias and Nephew bi-cruciate stabilized knee all components cemente d. The femur is Oxinium. These poly is cross-linked polyethylene. The femur is a size 5. The tibi a size 4, the patella 35 mm in diameter and the articular tray is 9 mm thick. My surgical instrument mechanic, Darren Harris, was a medical necessity for leg positioning and soft tissue re traction for this total knee replacement. /[id number]/MODL
--- NOTE | 2017-12-06 10:58 | POSTANESTH ---
Post Anesthetic Evaluation Respiratory Status: Normal, Stable Level of Consciousness/Mental Status: Can Participate in Eval, Mildly Sleepy, Arousable Pain Control: Adequate, Prn Tx Ordered Nausea/Vomiting Control: Adequate, Prn Tx Ordered Complications Possibly Related to Anesthesia: None Noted
[2017-12-06] MEDS: ACETAMINOPHEN 325 MG TAB PO SCH ×2 (12:31→17:54)
[2017-12-06] MEDS: LR 1,000 ML IV SCH (12:33)
[2017-12-06] MEDS: KETOROLAC 15 MG/1 ML SDV IVP SCH ×2 (12:33→17:55)
[2017-12-06] MEDS: ceFAZolin 2 GM/DEXTROSE 100 ML IV SCH (15:51)
--- NOTE | 2017-12-06 17:54 | PDHOSCONS ---
History and Physical - Chief Complaint bradycardia - History of Present Illness 72yo F with osteoarthritis, JOHANA, PVCs who had R total knee arthroplasty done this morning. Medicine is being consulted for bradycardia with HR as low as 35 per RN report. During this episodes, which occurred post-operatively, patient was asymptomatic and BP stable. On my discussion with patient, she reports feeling dizzy over the last 5-6 days leading up to the surgery. This was not positional. She denies any recent chest pain, palpitations, leg swelling, orthopnea. She was just recently diagnosed with JOHANA and just started wearing CPAP 3 days ago; she did not bring it with her. She has not had any changes in her metoprolol dosing recently. She reports having periods of bradycardia in the past. She was just hooked up to telemetry on the floor so there isn't much information however she does appear to be in sinus rhythm with frequent bigeminy. Her pain is currently controlled. Looking back at her prior admission, she has a documented heart of 34 during 2017 hospital stay. Of note, she's had 2 holter monitors over last year. These showed a significant burden of PVCs for which she recently saw Dr Francois in EP who is considering an ablation. Lowest documented heart rate was 52bpm. Also of note, she had a coronary angiogram 02/2017 with normal coronaries. History Information - Allergies/Home Medication List Allergies/Adverse Reactions: Sulfa (Sulfonamide Antibiotics) Allergy (Severe, Verified 03/16/17 07:54) Rash adhesive tape Allergy (Mild, Verified 12/19/15 11:47) Rash Home Medications: PARoxetine HCL [Paxil 10mg (*)] 10 mg PO DAILY 12/19/15 [Last Taken 12/06/17 04: 30] Metoprolol Succinate Xr [Toprol Xl 25 mg (*)] 25 mg PO HS 03/09/17 [Last Taken 12/06/17 04:30] Aspirin [Aspirin 81mg (*)] 81 mg PO DAILY 03/16/17 [Last Taken 11/29/17] Dorzolamide 2% [Trusopt 2% (*)] 1 drops EACHEYE BID 03/16/17 [Last Taken 04:30] Atorvastatin Calcium [Lipitor 20 mg (*)] 20 mg PO DAILY 05/06/17 [Last Taken 04:30] Hydrochlorothiazide [HCTZ (*)] 12.5 mg PO DAILY 11/03/17 [Last Taken 12/05/17] Levothyroxine [Synthroid 25 mcg (*)] 25 mcg PO DAILY 11/03/17 [Last Taken 04:30] Lisinopril [Zestril 10 mg (*)] 10 mg PO DAILY 11/03/17 [Last Taken 12/05/17] Herbals/Supplements -Info Only 1 unit PO DAILY 11/05/17 [Last Taken 2 Weeks Ago ~11/22/17] I have personally reviewed and updated: family history, medical history, social history, surgical history - Past Medical History Additional medical history: osteoarthritis, cervical stenosis, significant PVC burden (38k PVCs/day on recent holter), HTN, depression, hypothyroidism - Surgical History Additional surgical history: right shoulder arthroplasty, right total knee arthroplasty, C4-5/C5-6 ACDF - Family History Additional family history: no known early CAD - Social History Smoking Status: Former smoker Alcohol Use: None Drug Use: None Review of Systems Review of Systems: ROS: 10pt was reviewed & negative except for what was stated in HPI & below Physical Exam Physical Exam: Temp Pulse Resp BP Pulse Ox 36.4 C 66 16 106/61 95 12/06/17 15:58 12/06/17 15:58 12/06/17 15:58 12/06/17 15:58 12/06/17 15:58 O2 (L/minute) 2 Constitutional: no apparent distress, appears nourished, not in pain Eyes: PERRL, anicteric sclera, EOMI Ears, Nose, Mouth, Throat: moist mucous membranes, hearing normal, ears appear normal, no oral mucosal ulcers Cardiovascular: no murmur, rub, or gallop, other (regular rate and rhythm with frequent ectopy), No JVD, No edema Respiratory: no respiratory distress, no rales or rhonchi, clear to auscultation Gastrointestinal: normoactive bowel sounds, soft, non-tender abdomen, no palpable masses Skin: warm, normal color, no rashes or abrasions, no fluctuance, no induration, No mottled Musculoskeletal: other (right knee wrapped) Neurologic: AAOx3 Psychiatric: interacting appropriately, not anxious, not encephalopathic, thought process linear Lab Data & Imaging Review Visualized and Interpreted EKG results: Yes EKG additional interpertation: ECG: sinus rhythm, ventricular bigeminy, no AV block, no ischemia Assessment & Plan Assessment: 72yo F with osteoarthritis, JOHANA, PVCs who had R total knee arthroplasty done this morning. Medicine is being consulted for bradycardia with HR as low as 35 per RN report. Plan: #Bradycardia: Appears sinus. Going back in her chart, this seems to be rather chronic as she has had HR in 30s during previous admissions. She is asymptomatic. Suspect this is driven by increased vagal tone from surgery, untreated JOHANA, and use of AV yvonne frankie which she is on for PVC suppression. - Telemetry - Check troponin, TSH - Obtain TTE - Would keep her on current dose of metoprolol for now. If she becomes symptomatic (ie. dizzy) that is correlated with bradycardia, would consult cardiology. Otherwise, she should be good to follow up with her banking services advisor as an outpatient. #PVCs: Had 38k/day on recent holter. Saw Dr Francois with EP who's considering ablation. LVEF normal on last check. #HTN: Would resume home anti-hypertensives as you have. #Hypothyroidism: Checking TSH as above, continue LT4. #JOHANA: Just recently diagnosed. Didn't bring CPAP with her. Thank you for this consult. We will follow along.
[2017-12-06] MEDS: SENNOSIDES/DOCUSATE SODIUM TAB PO SCH (21:22)
[2017-12-06] MEDS: FAMOTIDINE 20 MG TAB PO SCH (21:22)
[2017-12-06] MEDS: DORZOLAMIDE 2% OPTH DROPS EACHEYE SCH (21:23)
[2017-12-06] MEDS: ASPIRIN 81 MG CHEWABLE TAB PO SCH (21:23)
[2017-12-06] MEDS: METOPROLOL SUCCINATE XR 25 MG TAB PO SCH (21:28)
[2017-12-07] MEDS: KETOROLAC 15 MG/1 ML SDV IVP SCH ×2 (00:23→05:21)
[2017-12-07] MEDS: ACETAMINOPHEN 325 MG TAB PO SCH ×5 (00:23→23:22)
[2017-12-07] MEDS: ceFAZolin 2 GM/DEXTROSE 100 ML IV SCH (00:23)
[2017-12-07] MEDS: LR 1,000 ML IV SCH (00:29)
[2017-12-07] MEDS: ATORVASTATIN CALCIUM 20 MG TAB PO SCH (08:45)
[2017-12-07] MEDS: DORZOLAMIDE 2% OPTH DROPS EACHEYE SCH ×2 (08:45→20:11)
[2017-12-07] MEDS: ASPIRIN 81 MG CHEWABLE TAB PO SCH ×2 (08:48→20:18)
[2017-12-07] MEDS: LISINOPRIL 10 MG TAB PO SCH (08:48)
[2017-12-07] MEDS: LEVOTHYROXINE 25 MCG TAB PO SCH (08:49)
[2017-12-07] MEDS: HYDROCHLOROTHIAZIDE 12.5 MG CAP PO SCH (08:49)
[2017-12-07] MEDS: FAMOTIDINE 20 MG TAB PO SCH ×2 (08:50→20:18)
[2017-12-07] MEDS: PARoxetine HCL 10 MG TAB PO SCH (08:50)
[2017-12-07] MEDS: SENNOSIDES/DOCUSATE SODIUM TAB PO SCH ×2 (08:50→20:39)
--- NOTE | 2017-12-07 08:50 | SOAPPROG ---
SOAP Progress Note Assessment/Plan: Assessment: 12/07/17 post op #1 R TKA, had episode of bradycardia, hosp consult appreciated, slow to mobilize, little pain Plan: 12/07/17 08:47 W/U per medicine, cont PT/OT Objective: Vital Signs Temp Pulse Resp BP Pulse Ox 36.4 C 52 L 20 122/58 H 94 12/07/17 08:15 12/07/17 08:15 12/07/17 08:15 12/07/17 08:15 12/07/17 08:15 Laboratory Results 12/07/17 04:20 12/06/17 12/07/17 12/08/17 05:59 05:59 05:59 Intake Total 3700 Output Total 1250 Balance 2450 ICD10 Worksheet Patient Problems: Problems Problem Status Onset Cervical vertebral fusion Acute
--- NOTE | 2017-12-07 08:58 | HOSPPROG ---
Hospitalist Progress Note Assessment/Plan: 72yo F with osteoarthritis, JOHANA, PVCs who had R total knee arthroplasty done this morning. Medicine is being consulted for bradycardia with HR as low as 35 per RN report. Today is my first encounter with the patient, chart reviewed. Discussed her care w Dr Dover #Bradycardia -on beta frankie at night (will leave her on current dose-tolerating well) -has a heart rate in the 30's on previous admissions -reviewed telemetry and she has been in sinus to sinus sravani w PAC's -TSH is stable -echo is pending #PVCs: Had 38k/day on recent holter. -patient met w Dr Francois, cont beta frankie, but no ablation -her 12 lead last evening show sinus w PVC's, but reviewing her tele showed PAC' s, will get another 12 lead to evaluate #HTN: with some hypotension -stable #anemia #Hypothyroidism: TSH is stable -cont Synthroid #JOHANA: Just recently diagnosed. Didn't bring CPAP with her. #POD #1 for a right total knee arthroplasty -she is not c/o pain, says her leg is numb (she says she had a block) -Dr Dover monitoring #plan: f/u with ekg and echo Subjective: Yesenia is feeling fine overall, enjoying breakfast. Objective: Vital Signs Temp Pulse Resp BP Pulse Ox 36.4 C 52 L 20 122/58 H 94 12/07/17 08:15 12/07/17 08:15 12/07/17 08:15 12/07/17 08:15 12/07/17 08:15 Laboratory Results 12/07/17 04:20 12/06/17 12/07/17 12/08/17 05:59 05:59 05:59 Intake Total 3700 Output Total 1250 Balance 2450 - Physical Exam Constitutional: no apparent distress, appears nourished, not in pain Eyes: PERRL Ears, Nose, Mouth, Throat: hearing normal Cardiovascular: regular rate and rhythym, no murmur, rub, or gallop, other ( extra beats), No tachycardia, No bradycardia Respiratory: no respiratory distress Gastrointestinal: normoactive bowel sounds Skin: warm, other (right knee in darinel wrap) Neurologic: AAOx3 Psychiatric: interacting appropriately ICD10 Worksheet Patient Problems: Problems Problem Status Onset Cervical vertebral fusion Acute
--- NOTE | 2017-12-07 11:09 | CPEKG ---
Test Reason : OPEN Blood Pressure : / mmHG Vent. Rate : 090 BPM Atrial Rate : 035 BPM P-R Int : 202 ms QRS Dur : 104 ms QT Int : 404 ms P-R-T Axes : 056 -08 -14 degrees QTc Int : 495 ms Sinus rhythm Ventricular bigeminy Left atrial enlargement Low voltage, precordial leads Borderline T abnormalities, anterior leads Confirmed by Alvaro Hennessy ([id number]) on 12/07/2017 11:08:52 AM Referred By: Confirmed By:Alvaro Hennessy
--- NOTE | 2017-12-07 12:10 | ECHO ---
[email or web address] [address] [address] Main: [phone] Fax: [email or web address] Echocardiogram Name: ELOY VELA MR#: [id number] Study Date: 12/07/2017 Study Time: 07:42 AM Date of : 1945 Age: 72 year(s) Height: 165.1 cm (65 in.) Weight: 68.95 kg (152 lb.) BSA: 1.76 m2 Gender: Female Examination: Echo Indication: Post Knee surgery, Bradycardia and PVC's Image Quality: Contrast: Requested by: Navid Avery BP: 112 mmHg/59 mmHg Heart Rate: Rhythm: Sinus bradycardia Indication: Post Knee surgery, Bradycardia and PVC's Procedure Staff [employer] [place]: Sameer Mckenzie RDCS Reading Physician: Dino Abad MD Requesting Provider: Conclusions: Normal size left ventricle. Normal global systolic LV function. EF is 64 %. No regional wall motion abnormality. Diastolic dysfunction is present. . Normal size right ventricle. Normal RV function. The left atrium is normal in size. The right atrium is normal in size. The pulmonary artery pressure is normal. No pericardial effusion. Measurements: Chambers Valvular Assessment AV/MV Valvular Assessment TV/PV Normal Normal Normal Name Value Range Name Value Range Name Value Range Ao Dang (MM): 3.1 cm (2.2 cm-3.7 AV Vmax: 1.00 m/s (1 m/s-1.7 TR Vmax: 2.59 mm/s ( - ) cm) m/s) TR PGmax: 27 mmHg ( - ) IVSd (2D): 0.5 cm (0.6 cm-1.1 AV maxP mmHg ( - ) syst. PAP: 32 mmHg ( - ) cm) AV meanP mmHg ( - ) LVDd (2D): 5.3 cm (3.9 cm-5.3 MV E Vmax: 0.73 m/s ( - ) cm) MV A Vmax: 0.64 m/s ( - ) LVDs (2D): 3.4 cm (2.1 cm-4 MV E/A: 1.14 ( - ) cm) LVPWd (2D): 0.8 cm ( - ) LVEF (2D): 64 (>=54 %) Continued Measurements: Chambers Valvular Assessment AV/MV Valvular Assessment TV/PV Patient: ELOY VELA Study Date: 12/07/2017 Page 1 of 2 07:42 AM Name Value Name Value Name Value LADs Lon.2 cm MV E' Septal: 0.05 m/s CVP (est.): 5 mmHg LA Area: 18.9 cm2 MV E/E' Septal: 13.90 MV E/E' Lateral: 13.40 Findings: Left Ventricle: Normal size left ventricle. No LV hypertrophy. Normal global systolic LV function. EF is 64 %. No regional wall motion abnormality. Diastolic dysfunction is present. . Right Ventricle: Normal size right ventricle. Normal RV function. Left Atrium: The left atrium is normal in size. Right Atrium: The right atrium is normal in size. Definite Eustachian valve in right atrium. Mitral Valve: The mitral valve is normal in appearance and function. Mild mitral valve regurgitation is present. Aortic Valve: The aortic valve is tri-leaflet. Trivial aortic valve regurgitation. No aortic valve stenosis is present. Tricuspid Valve: The tricuspid valve appears normal. Trivial tricuspid valve regurgitation. The pulmonary artery pressure is normal. Pulmonic Valve: The pulmonic valve is normal in appearance and function. Aorta: The aorta is normal. Pericardium: No pericardial effusion. Exam Comments: (No Signature Object) Patient: ELOY VELA Study Date: 12/07/2017 Page 2 of 2 07:42 AM [id number]
--- NOTE | 2017-12-07 12:22 | SOAPPROG ---
SOAP Progress Note Assessment/Plan: Assessment: No issues post duramorph spinal, but persistent femoral nerve distribution weakness following single shot block yesterday. Patient thinks she is noticing some improvement at this point. Likely normal variation of block duration. Plan: Will continue to monitor, patient reassured that function and sensation should continue to rapidly improve. 12/07/17 12:22 Subjective: Patient doing well from pain standpoint, small amount of discomfort anterior knee, otherwise denies pain. No N/V, no pruritis, urinary retention or constipation. She states she is having difficulty walking as her seems to give out due to quad muscle weakness. Objective: Vital Signs Temp Pulse Resp BP Pulse Ox 36.4 C 52 L 20 122/58 H 94 12/07/17 08:15 12/07/17 08:15 12/07/17 08:15 12/07/17 08:15 12/07/17 08:15 Laboratory Results 12/07/17 04:20 12/06/17 12/07/17 12/08/17 05:59 05:59 05:59 Intake Total 3700 350 Output Total 1250 300 Balance 2450 50 Patient awake and alert, up and walking with PT and walker assist. Quad weakness persists post adductor canal block. - Time Spent With Patient Time Spent With Patient: 10minutes - Pending Discharge Pending Discharge Within 24 Hours: Yes Pending Discharge Date: 12/08/17 Pending Discharge Time: 11:00 ICD10 Worksheet Patient Problems: Problems Problem Status Onset Cervical vertebral fusion Acute
--- NOTE | 2017-12-07 15:11 | ASMTCMCOM ---
CM Note CM Note Notes: Pt s/p R TKA. Pt resides with spouse in [employer] [place] [facility]. PT rec HHC and 24/hr supervision, OT rec home/HHC. Pt will provide 24/hr supervision. Pt declines HHC. Pt likely d/c tomorrow. No CM d/c needs identified. CM available for changes/needs. Date Signed: 12/07/2017 03:11 PM Electronically Signed By:AZALIA Warner
--- NOTE | 2017-12-07 15:31 | PDMN ---
Medical Necessity Medical necessity: [facility] Cardiology GR72 y/o s/p TKA, developed bradycardia , immediate concern as HR in 30s, 12 lead ekg shows AV block, pt will require another MN stay to monitor her bradycardia, tele ordered, check troponins and obtain TTE, and monitor her ability to ambulate safely, making her IP status. Slow to mobilize, PT/OT evals ongoing.
[2017-12-07] MEDS: oxyCODONE IR 5 MG TAB PO PRN ×3 (15:38→23:22)
[2017-12-07] MEDS: CYCLOBENZAPRINE 10 MG TAB PO PRN (19:36)
[2017-12-07] MEDS: METOPROLOL SUCCINATE XR 25 MG TAB PO SCH (23:22)
[2017-12-08] MEDS: oxyCODONE IR 5 MG TAB PO PRN ×2 (03:51→08:59)
[2017-12-08] MEDS: CYCLOBENZAPRINE 10 MG TAB PO PRN ×2 (06:23→23:22)
[2017-12-08] MEDS: ACETAMINOPHEN 325 MG TAB PO SCH ×4 (06:23→23:53)
[2017-12-08] MEDS: FAMOTIDINE 20 MG TAB PO SCH ×2 (09:00→20:07)
[2017-12-08] MEDS: SENNOSIDES/DOCUSATE SODIUM TAB PO SCH ×2 (09:00→20:09)
[2017-12-08] MEDS: PARoxetine HCL 10 MG TAB PO SCH (09:00)
[2017-12-08] MEDS: ATORVASTATIN CALCIUM 20 MG TAB PO SCH (09:01)
[2017-12-08] MEDS: LISINOPRIL 10 MG TAB PO SCH (09:01)
[2017-12-08] MEDS: ASPIRIN 81 MG CHEWABLE TAB PO SCH ×2 (09:02→20:07)
[2017-12-08] MEDS: LEVOTHYROXINE 25 MCG TAB PO SCH (09:02)
[2017-12-08] MEDS: HYDROCHLOROTHIAZIDE 12.5 MG CAP PO SCH (09:02)
[2017-12-08] MEDS: DORZOLAMIDE 2% OPTH DROPS EACHEYE SCH ×2 (09:04→20:07)
--- NOTE | 2017-12-08 12:50 | SOAPPROG ---
SOAP Progress Note Assessment/Plan: Assessment: POD #2, s/p R TKA Awake, alert, afebrile. Lightheaded with ambulation. Diarrhea. Dressing oozing with serosanguinous fluid. OOB with PT in hallway No stairs yet secondary to 9/10 pain with ambulation. Hospitalist following her for cardiac issues. Plan: Cont PT/OT today for progression. Anticipate d/c to home tomorrow. Cont to reinforce dressing and will change it prior to d/c tomorrow 12/08/17 12:47 Objective: Vital Signs Temp Pulse Resp BP Pulse Ox 36.7 C 73 16 122/58 H 98 12/08/17 12:19 12/08/17 12:19 12/08/17 12:19 12/08/17 12:19 12/08/17 12:19 Laboratory Results 12/08/17 04:25 12/07/17 12/08/17 12/09/17 05:59 05:59 05:59 Intake Total 3700 1150 Output Total 1250 1200 Balance 2450 -50 ICD10 Worksheet Patient Problems: Problems Problem Status Onset Cervical vertebral fusion Acute
[2017-12-08] MEDS: LISINOPRIL 2.5 MG TAB PO SCH (14:57)
[2017-12-08] MEDS: METOPROLOL SUCCINATE XR 25 MG TAB PO SCH (20:07)
--- NOTE | 2017-12-08 22:22 | HOSPPROG ---
Hospitalist Progress Note Assessment/Plan: Assessment: 72 yo F p/w elective R TKA c/b acute on chronic bradycardia Plan: #Bradycardia. Acute drop to 30s intermittently w/ rates mostly in 60-70 range, has hx of 30s -2/2 bblocker effect, which is prescribed for her frequent PVCs -SBP stable, no indication to stop bblocker unless hypotensive or symptomatic during therapy -tele (personally reviewed) in NSR w/ ventricular bigeminy -Echo w/ dd, EF nl, nl RV -no indication for further cardiac w/u, recommend regular outpt f/u w/ Dr. Francois #PVCs: Had 38k/day on recent holter, cont bblocker, f/u Dr. Francois #HTN: Chronic, cont ACEi at reduced dosage and hold HCTZ, cont bblocker #Anemia: monitor for e/o blood loss #Hypothyroidism: TSH is stable -cont Synthroid #JOHANA: Just recently diagnosed, started on CPAP #Right total knee arthroplasty: POD#2, extended LOS required b/c nerve block w/ protracted duration making therapy today challenging, particularly now that she is experiencing increased pain as it has worn off and now requires trial of various opiates to gauge response -will need outpt f/u Dr. Dover -PT/OT to gauge whether safe to DC home vs. SNF Diet. Regular PPx. High risk, lovenox 40 Code. Full Dispo. ADD 12/09, pending ability to safely ambulate Subjective: increased pain this AM in RLE, less function, had BM yesterday Objective: Vital Signs Temp Pulse Resp BP Pulse Ox 36.7 C 65 18 112/58 L 95 12/08/17 19:51 12/08/17 20:07 12/08/17 19:51 12/08/17 20:07 12/08/17 19:51 Laboratory Results 12/08/17 04:25 12/07/17 12/08/17 12/09/17 05:59 05:59 05:59 Intake Total 3700 1150 Output Total 1250 1200 900 Balance 5780 -50 -900 - Pending Discharge Pending Discharge Within 24 Hours: Yes Pending Discharge Date: 12/09/17 Pending Discharge Time: 11:00 - Physical Exam Constitutional: no apparent distress, appears nourished, uncomfortable, No not in pain (mild) Cardiovascular: other (regular couplets), No systolic murmur, No bradycardia, No edema Respiratory: no respiratory distress, no rales or rhonchi, clear to auscultation Gastrointestinal: normoactive bowel sounds, soft, non-tender abdomen, no palpable masses Neurologic: AAOx3, weakness (RLE 3/5 motor R hip flexor), No sensation intact bilaterally (RLE paresthesias) Psychiatric: interacting appropriately, not anxious, not encephalopathic, thought process linear ICD10 Worksheet Patient Problems: Problems Problem Status Onset Cervical vertebral fusion Acute
[2017-12-09] MEDS: ACETAMINOPHEN 325 MG TAB PO SCH ×3 (06:19→18:14)
--- NOTE | 2017-12-09 07:44 | SOAPPROG ---
SOAP Progress Note Assessment/Plan: Assessment: POD #2, s/p R TKA Awake, alert, afebrile. Lightheaded with ambulation. Diarrhea. Dressing oozing with serosanguinous fluid. OOB with PT in hallway No stairs yet secondary to 9/10 pain with ambulation. Hospitalist following her for cardiac issues. Plan: Cont PT/OT today for progression. Anticipate d/c to home tomorrow. Cont to reinforce dressing and will change it prior to d/c tomorrow 12/08/17 12:47 12/09/17 07:43 Assessment: POD #3, s/p R TKA Awake, alert, afebrile. Slow to progress b/c of painful knee. Bleeding has stopped. Dressing is clean and dry. Did not get OOB for a second time yesterday. Plan: Rec pt transfer to SNF. Cont PT/OT today. Able to go to SNF tomorrow. Objective: Vital Signs Temp Pulse Resp BP Pulse Ox 36.9 C 67 16 137/48 H 92 12/09/17 04:00 12/09/17 04:00 12/09/17 04:00 12/09/17 04:00 12/09/17 04:00 Laboratory Results 12/09/17 04:54 12/09/17 04:54 12/08/17 12/09/17 12/10/17 05:59 05:59 05:59 Intake Total 1150 Output Total 1200 3200 Balance -50 -3200 ICD10 Worksheet Patient Problems: Problems Problem Status Onset Cervical vertebral fusion Acute
[2017-12-09] MEDS: ASPIRIN 81 MG CHEWABLE TAB PO SCH ×2 (08:13→20:34)
[2017-12-09] MEDS: FAMOTIDINE 20 MG TAB PO SCH ×2 (08:13→20:34)
[2017-12-09] MEDS: ATORVASTATIN CALCIUM 20 MG TAB PO SCH (08:13)
[2017-12-09] MEDS: PARoxetine HCL 10 MG TAB PO SCH (08:14)
[2017-12-09] MEDS: LEVOTHYROXINE 25 MCG TAB PO SCH (08:14)
[2017-12-09] MEDS: LISINOPRIL 2.5 MG TAB PO SCH (08:15)
[2017-12-09] MEDS: DORZOLAMIDE 2% OPTH DROPS EACHEYE SCH ×2 (08:16→20:54)
[2017-12-09] MEDS: SENNOSIDES/DOCUSATE SODIUM TAB PO SCH ×2 (10:21→20:33)
--- NOTE | 2017-12-09 11:05 | CPEKG ---
Test Reason : OPEN Blood Pressure : / mmHG Vent. Rate : 056 BPM Atrial Rate : 056 BPM P-R Int : 239 ms QRS Dur : 099 ms QT Int : 412 ms P-R-T Axes : 095 010 009 degrees QTc Int : 398 ms Sinus rhythm Prolonged SD interval Abnormal R-wave progression, early transition Ventricular bigeminy is no longer noted Confirmed by Alvaro Hennessy ([id number]) on 12/09/2017 11:05:00 AM Referred By: Confirmed By:Alvaro Hennessy
--- NOTE | 2017-12-09 11:06 | ASMTCMCOM ---
CM Note CM Note Notes: PT continues to rec HHC and 24/hr supervision, OT rec SNF/HHC. Pt amenable to [facility] at d/c. Referral sent in [employer] to [facility], pt clinically accepted pending insurance verification and nurse evaluation. Likely d/c tomorrow. CM to follow. D/c plan of care: [facility] Date Signed: 12/09/2017 11:05 AM Electronically Signed By:AZALIA Warner
[2017-12-09] MEDS ORDERED: oxyCODONE IR 5 MG TAB PO PRN (11:14)
--- NOTE | 2017-12-09 18:01 | HOSPPROG ---
Hospitalist Progress Note Assessment/Plan: Assessment: 72 yo F p/w elective R TKA c/b acute on chronic bradycardia Plan: #Bradycardia. Acute drop to 30s intermittently w/ rates mostly in 60-70 range, has hx of 30s -2/2 bblocker effect, which is prescribed for her frequent PVCs -SBP stable, no indication to stop bblocker unless hypotensive or symptomatic during therapy -tele NSR w/ ventricular bigeminy -Echo w/ dd, EF nl, nl RV -no indication for further cardiac w/u, recommend regular outpt f/u w/ Dr. Francois #PVCs: Had 38k/day on recent holter, cont bblocker, f/u Dr. Francois #HTN: Chronic, cont ACEi at reduced dosage (2.5mg) at discharge, stopped HCTZ and remain off at DC #Anemia: monitor for e/o blood loss #Hypothyroidism: TSH is stable -cont Synthroid #JOHANA: Just recently diagnosed, started on CPAP #Right total knee arthroplasty: POD#3, extended LOS required b/c nerve block w/ protracted duration making therapy today challenging, pain made ambulation unobtainable 12/08, and today she is very lethargic 2/2 PO morphine received 12/08 -d/w patient, adjusted from PO morphine to PO oxy IR (5-15mg PRN), gauge tolerance and ability to work w/ PT -patient requiring therapies and asst w/ ADLs, requiring SNF Diet. Regular PPx. High risk, ASA per Dr. Dover Code. Full Dispo. ADD 12/10, pending ability to safely ambulate Subjective: reports pain better controlled, lethargic Objective: Vital Signs Temp Pulse Resp BP Pulse Ox 36.6 C 59 L 16 112/55 L 95 12/09/17 15:38 12/09/17 15:38 12/09/17 15:38 12/09/17 15:38 12/09/17 15:38 Laboratory Results 12/09/17 04:54 12/09/17 04:54 12/08/17 12/09/17 12/10/17 05:59 05:59 05:59 Intake Total 1150 Output Total 1200 3200 100 Balance -50 -3200 -100 - Pending Discharge Pending Discharge Within 24 Hours: Yes Pending Discharge Date: 12/10/17 Pending Discharge Time: 11:00 - Physical Exam Constitutional: no apparent distress, appears nourished, not in pain, uncomfortable Cardiovascular: other (regular couplets), No systolic murmur, No tachycardia, No bradycardia, No edema Respiratory: no respiratory distress, no rales or rhonchi, clear to auscultation Gastrointestinal: normoactive bowel sounds, soft, non-tender abdomen, no palpable masses Neurologic: AAOx3, sensation intact bilaterally, weakness (RLE motor 4/5 hip flexor) Psychiatric: interacting appropriately, not anxious, not encephalopathic, thought process linear, other (lethargic but arousable to verbal stimuli) ICD10 Worksheet Patient Problems: Problems Problem Status Onset Cervical vertebral fusion Acute
[2017-12-09] MEDS: METOPROLOL SUCCINATE XR 25 MG TAB PO SCH (20:34)
[2017-12-10] MEDS: ACETAMINOPHEN 325 MG TAB PO SCH ×3 (00:04→13:57)
[2017-12-10] MEDS: LEVOTHYROXINE 25 MCG TAB PO SCH (09:56)
[2017-12-10] MEDS: ASPIRIN 81 MG CHEWABLE TAB PO SCH (09:56)
[2017-12-10] MEDS: ATORVASTATIN CALCIUM 20 MG TAB PO SCH (09:56)
[2017-12-10] MEDS: FAMOTIDINE 20 MG TAB PO SCH (09:56)
[2017-12-10] MEDS: LISINOPRIL 2.5 MG TAB PO SCH (09:56)
[2017-12-10] MEDS: DORZOLAMIDE 2% OPTH DROPS EACHEYE SCH (09:57)
[2017-12-10] MEDS: SENNOSIDES/DOCUSATE SODIUM TAB PO SCH (09:57)
[2017-12-10] MEDS: PARoxetine HCL 10 MG TAB PO SCH (09:57)
[2017-12-10 12:03] VITALS: BP 124/66
--- NOTE | 2017-12-10 13:24 | SOAPPROG ---
SOAP Progress Note Assessment/Plan: Assessment: POD #2, s/p R TKA Awake, alert, afebrile. Lightheaded with ambulation. Diarrhea. Dressing oozing with serosanguinous fluid. OOB with PT in hallway No stairs yet secondary to 9/10 pain with ambulation. Hospitalist following her for cardiac issues. Plan: Cont PT/OT today for progression. Anticipate d/c to home tomorrow. Cont to reinforce dressing and will change it prior to d/c tomorrow 12/08/17 12:47 12/09/17 07:43 Assessment: POD #3, s/p R TKA Awake, alert, afebrile. Slow to progress b/c of painful knee. Bleeding has stopped. Dressing is clean and dry. Did not get OOB for a second time yesterday. Plan: Rec pt transfer to SNF. Cont PT/OT today. Able to go to SNF tomorrow. 12/10/17 13:23 Assessment: Awake, alert, afebrile. Drssing clean and dry. H/H ok. Improved pain. Ambulating in hallway, Plan: D/c to SNF later today. F/u in office on Dec 21 as planned. Objective: Vital Signs Temp Pulse Resp BP Pulse Ox 36.8 C 62 16 124/66 H 95 12/10/17 12:00 12/10/17 12:00 12/10/17 12:00 12/10/17 12:00 12/10/17 12:00 Laboratory Results 12/09/17 04:54 12/09/17 04:54 12/09/17 12/10/17 12/11/17 05:59 05:59 05:59 Intake Total 300 200 Output Total 3200 600 Balance -3200 -300 200 ICD10 Worksheet Patient Problems: Problems Problem Status Onset Chronic Disease Mgmt/Transitonal Care Acute Cervical vertebral fusion Acute
--- NOTE | 2017-12-10 13:38 | PDIAF ---
- Diagnosis Diagnosis: R knee OA Code Status: Full Code - Medication Management Discharge Medications: Medications to Continue on Transfer PARoxetine HCL [Paxil 10mg (*)] 10 mg PO DAILY 12/19/15 [Last Taken 12/06/17 04: 30] Metoprolol Succinate Xr [Toprol Xl 25 mg (*)] 25 mg PO HS 03/09/17 [Last Taken 12/06/17 04:30] Dorzolamide 2% [Trusopt 2% (*)] 1 drops EACHEYE BID 03/16/17 [Last Taken 04:30] Atorvastatin Calcium [Lipitor 20 mg (*)] 20 mg PO DAILY 05/06/17 [Last Taken 04:30] Hydrochlorothiazide [HCTZ (*)] 12.5 mg PO DAILY 11/03/17 [Last Taken 12/05/17] Levothyroxine [Synthroid 25 mcg (*)] 25 mcg PO DAILY 11/03/17 [Last Taken 04:30] Herbals/Supplements -Info Only 1 unit PO DAILY 11/05/17 [Last Taken 2 Weeks Ago ~11/22/17] Acetaminophen [Tylenol 325mg (*)] 650 mg PO Q6HRS tab 12/10/17 [Last Taken Unknown] Aspirin [Aspirin 81mg (*)] 81 mg PO BID tab.chew 12/10/17 [Last Taken Unknown] Lisinopril [Zestril 2.5 mg (*)] 2.5 mg PO DAILY tab 12/10/17 [Last Taken Unknown] Ondansetron Odt [Zofran Odt 4 mg (*)] 4 mg PO Q4HRS PRN tab 12/10/17 [Last Taken Unknown] Sennosides/Docusate Sodium [Senokot-S] 1 - 2 tab PO BID tab 12/10/17 [Last Taken Unknown] oxyCODONE IR [Oxycodone Ir (*)] 5 - 15 mg PO Q4HRS PRN tab 12/10/17 [Last Taken Unknown] Discharge Medications: Refer to the Discharge Home Medication list for PRN reason. PICC Care - Routine: N/A - Orders Services needed: Physical Therapy (at SNF), Occupational Therapy (at SNF) Diet Recommendation: no restrictions on diet Diet Texture: Regular Texture Diet Blanco: Not applicable Zoran Stockings Discontinue Date: 2 weeks Wound Care Instructions: keep clean and dry. you may shower. Activity/Weight Bearing Restrictions: WBAT. - Follow Up Care Current Providers and Referrals: Ofelia Cha MD [Primary Care Provider] - Anastacio Dover MD [Medical Doctor] - 12/21/17
--- NOTE | 2017-12-10 14:25 | ASMTLACE ---
LACE Length of stay for Answers: 4-6 days current admission Acuity / Level of Answers: Yes Care: Did the patient have an inpatient admission? Comorbidities - select Answers: Coronary Artery Disease all that apply Opioid dependence / Chronic pain Other Notes: HTN; Hypothyroid # of Emergency department Answers: 0 visits in the last 6 months Social determinants Answers: Mental health diagnosis (anxiety, depression, pers onality disorders, etc.) Score: 17 Date Signed: 12/10/2017 02:25 PM Electronically Signed By:AZALIA Warner
--- NOTE | 2017-12-10 14:26 | ASMTCMCOM ---
CM Note CM Note Notes: Pt medically stable for d/c to [facility]. Orders sent in Allscripts. Kayla with [facility] scheduled wc transport for 1500. [place] to call report. Date Signed: 12/10/2017 02:26 PM Electronically Signed By:AZALIA Warner
--- NOTE | 2017-12-10 16:31 | ASDISCHSUM ---
Discharge Information Plan Status:SNF Medically Cleared to Leave: Discharge Date:12/10/2017 04:02 PM D/C Disposition:Half-Way Facility ADT D/C Disposition:Half-Way Facility Projected Discharge Date:12/10/2017 11:00 AM Transportation at D/C:Wheelchair Van Discharge Delay Reason: Follow-Up Date:12/10/2017 11:00 AM Discharge Slot: Final Diagnosis: Placement Information Referral Type:*Fci/SNF Referral ID:[id number] Provider Name:[facility] Address 1:[address] Address 2: City:[place] Selection Factors: State:[place] Patient Contact Information Contact Name:NISHARONDA Relationship: [address] City:[facility] Phone: State/Zip Code:[place] [address] Email: Financial Information Financial Class:Medicare Primary Plan Desc:MEDICARE INPATIENT Primary Plan Number:[id number] Secondary Plan Desc:[employer]/MDR SUPPLEMENT Secondary Plan Number:[id number] Assessment Information LACE LACE Length of stay for Answers: 4-6 days current admission Acuity / Level of Answers: Yes Care: Did the patient have an inpatient admission? Comorbidities - select Answers: Coronary Artery Disease all that apply Opioid dependence / Chronic pain Other Notes: HTN; Hypothyroid # of Emergency department Answers: 0 visits in the last 6 months Social determinants Answers: Mental health diagnosis (anxiety, depression, pers onality disorders, etc.) Score: 17 Date Signed: 12/10/2017 02:25 PM Electronically Signed By:AZALIA Warner [facility] CM Progress Note CM Note CM Note Notes: Pt s/p R TKA. Pt resides with spouse in [employer] [place] [address] PT rec HHC and 24/hr supervision, OT rec home/HHC. Pt will provide 24/hr supervision. Pt declines HHC. Pt likely d/c tomorrow. No CM d/c needs identified. CM available for changes/needs. Date Signed: 12/07/2017 03:11 PM Electronically Signed By:AZALIA Warner [facility] CM Progress Note CM Note CM Note Notes: PT continues to rec HHC and 24/hr supervision, OT rec SNF/HHC. Pt amenable to [facility] at d/c. Referral sent in Allscripts to [facility], pt clinically accepted pending insurance verification and nurse evaluation. Likely d/c tomorrow. CM to follow. D/c plan of care: [facility] Date Signed: 12/09/2017 11:05 AM Electronically Signed By:AZALIA Warner [facility] CM Progress Note CM Note CM Note Notes: Pt medically stable for d/c to [facility]. Orders sent in Allscripts. Kayla with [facility] scheduled wc transport for 1500. [place] to call report. Date Signed: 12/10/2017 02:26 PM Electronically Signed By:AZALIA Warner Intervention Information Intervention Type:*LINDA-Signed Date of Service:12/07/2017 10:14 AM Patient Type:Observation Staff Member:Lelo Jorge Hours: Discipline: Severity: Comment:
--- NOTE | 2017-12-10 21:20 | HOSPPROG ---
Hospitalist Progress Note Assessment/Plan: Assessment: 72 yo F p/w elective R TKA c/b acute on chronic bradycardia Plan: #Bradycardia. Acute drop to 30s intermittently w/ rates mostly in 60-70 range, has hx of 30s -2/2 bblocker effect, which is prescribed for her frequent PVCs -SBP stable, no indication to stop bblocker -Echo w/ dd, EF nl, nl RV -counseled patient and that she should remain on bblocker and f/u w/ Dr. Ortiz at since Dr. Francois is leaving #PVCs: Had 38k/day on recent holter, cont bblocker #HTN: Chronic, cont ACEi at reduced dosage (2.5mg) at discharge, stopped HCTZ and remain off at DC #Anemia: stable #Hypothyroidism: TSH is stable -cont Synthroid #JOHANA: Just recently diagnosed, started on CPAP #Right total knee arthroplasty: POD#4, extended LOS required b/c nerve block w/ protracted duration making therapy challenging, pain made ambulation unobtainable 12/08, and today she is very lethargic 2/2 PO morphine received 12/08 -tolerating PO oxy w/ good relief of pain Diet. Regular PPx. High risk, ASA per Dr. Dover Code. Full Dispo. ADD 12/10, safe for DC from a medicine standpoint, see above for Rx recs. Subjective: reports good pain control, advised to take PO oxy prior to therapy sessions Objective: Vital Signs Temp Pulse Resp BP Pulse Ox 36.8 C 62 16 124/66 H 95 12/10/17 12:00 12/10/17 12:00 12/10/17 12:00 12/10/17 12:00 12/10/17 12:00 Laboratory Results 12/09/17 04:54 12/09/17 04:54 12/09/17 12/10/17 12/11/17 05:59 05:59 05:59 Intake Total 300 200 Output Total 3200 600 Balance -3200 -300 200 - Physical Exam Constitutional: no apparent distress, appears nourished, not in pain Cardiovascular: other (intermittent couplets w/ ectopy), No irregularly irregular, No tachycardia, No edema Respiratory: no respiratory distress, no rales or rhonchi, clear to auscultation Gastrointestinal: normoactive bowel sounds, soft, non-tender abdomen, no palpable masses Skin: other (no erythema extending beyond the cool wrap) Neurologic: AAOx3, sensation intact bilaterally, weakness (4/5 R hip flexor, 5/ 5 L hip flexor) Psychiatric: interacting appropriately, not anxious, not encephalopathic, thought process linear ICD10 Worksheet Patient Problems: Problems Problem Status Onset Arthritis of knee, right Acute Cervical vertebral fusion Acute Chronic Disease [facility]/Transitonal Care Acute
== END 2017-12-10 16:02 | DRG 470 ==
LOC: F3E 05:31 → F3N 10:41 → OBSVTOIN 12-07 14:38
PROVIDERS: ADMIT Orthopaedic Surgery; ATTEND Orthopaedic Surgery
PROC: 0SRC0J9 Replacement of Right Knee Joint with Synthetic Substitute, Cemented, Open Approach (ICD-10-PCS; principal; 2017-12-07)
DX: M17.11 Unilateral primary osteoarthritis, right knee (principal); R00.1 Bradycardia, unspecified; I10 Essential (primary) hypertension; G47.33 Obstructive sleep apnea (adult) (pediatric); E03.9 Hypothyroidism, unspecified; Z98.1 Arthrodesis status; Z96.652 Presence of left artificial knee joint; Z96.611 Presence of right artificial shoulder joint; Z87.891 Personal history of nicotine dependence; Z23 Encounter for immunization
CPT/HCPCS: 97110-GP; 97116-GP; 97161-GP; 97165-GO; 97530-GP; 97535-GO; C1713; G0008; G8978-GP-CK; G8979-GP-CI; G8987-GO-CK; G8988-GO-CI; J0171; J0690; J1100; J1885; J2250; J2270; J2274; J2405; J2704; J2795; J3010

== ENCOUNTER → 2018-05-27 | Outpatient (CLI) | payer OTHER, MEDICARE | LOC: FIMAGING 08:01 | PROVIDERS: ATTEND Internal Medicine | DX: Z12.31 Encounter for screening mammogram for malignant neoplasm of breast (principal) ==

== ENCOUNTER → 2018-07-28 | Outpatient (CLI) | payer OTHER, MEDICARE | LOC: BHFA 10:30 | PROVIDERS: ATTEND Internal Medicine Cardiovascular Disease | DX: I49.3 Ventricular premature depolarization (principal); R53.83 Other fatigue ==